=== PATIENT | female | born 1990 | race Two or more races ===

== ENCOUNTER 2021-12-27 06:35 | Emergency (ER) | payer OTHER ==
[~2021-12-27] VITALS: Ht 175.3 cm; Wt 90.7 kg
[2021-12-27] MEDS ORDERED: SYMBICORT 16010.2 GM (06:44)
[2021-12-27] MEDS ORDERED: XYZAL5 MG (06:44)
[2021-12-27] MEDS ORDERED: SINGULAIR10 MG (06:44)
== END 2021-12-27 10:00 | disposition home or self-care (01) ==
LOC: ER 06:35
DX: J45.901 Unspecified asthma with (acute) exacerbation (principal)